=== PATIENT | female | born 1995 ===

== ENCOUNTER 2019-12-29 07:17 | Day surgery (SDC) | payer BC ==
[~2019-12-29 07:17] MED LIST: Lactated Ringers 1,000 ML IV SCH
--- NOTE | 2019-12-29 07:53 | PCM.PREANE ---
Preanesthetic Assessment - Anesthesia/Transfusion/Family Hx Anesthesia History: Prior Anesthesia Without Reaction Family History of Anesthesia Reaction: No Transfusion History: Prior Transfusion Without Reaction Intubation History: Unknown - Review of Systems General: No Symptoms Pulmonary: No Symptoms Cardiovascular: No Symptoms Gastrointestinal: Abdominal Pain (epigastric pain) Neurological: No Symptoms Other: Reports: None - Physical Assessment Vital Signs: Last Vital Signs Temp 36.4 C 12/29/19 07:29 Pulse 64 12/29/19 07:29 Resp 16 12/29/19 07:29 BP 118/72 12/29/19 07:29 Pulse Ox 100 12/29/19 07:29 Height: 5 ft Weight: 48.988 kg ASA Class: 1 Mental Status: Alert & Oriented x3 Airway Class: Mallampati = 2 Dentition: Reports: Partial (upper) Thyro-Mental Finger Breadths: 3 Mouth Opening Finger Breadths: 3 ROM/Head Extension: Full Lungs: Clear to Auscultation, Normal Respiratory Effort Cardiovascular: Regular Rate, Regular Rhythm - Lab Values: Laboratory Last Values Urine HCG, Qual NEGATIVE (NEGATIVE) 12/29/19 07:30 - Allergies Allergies/Adverse Reactions: Allergies Allergy/AdvReac Type Severity Reaction Status Date / Time No Known Allergies Allergy Verified 12/23/19 13:50 - Blood Blood Available: No - Anesthesia Plan Pre-Op Medication Ordered: None - Acknowledgements Anesthesia Type Planned: MAC Pt an Appropriate Candidate for the Planned Anesthesia: Yes Alternatives and Risks of Anesthesia Discussed w Pt/Guardian: Yes Pt/Guardian Understands and Agrees with Anesthesia Plan: Yes PreAnesthesia Questionnaire HEENT History: Reports: Other (See Below) Other HEENT History: top denture Cardiovascular History: Reports: None Respiratory History: Reports: None Gastrointestinal History: Reports: Other (See Below) Other Gastrointestinal History: intermittent abd pain Genitourinary History: Reports: None Musculoskeletal History: Reports: None Neurological History: Reports: None Psychiatric History: Reports: None Endocrine/Metabolic History: Reports: None Hematologic History: Reports: Anemia, Blood Transfusion(s) Immunologic History: Reports: None Oncologic (Cancer) History: Reports: None Dermatologic History: Reports: Eczema Other Dermatologic History: eczema in the past - Infectious Disease History Infectious Disease History: Reports: None - Past Surgical History Head Surgeries/Procedures: Reports: None HEENT Surgical History: Reports: None Cardiovascular Surgical History: Reports: None Respiratory Surgical History: Reports: None GI Surgical History: Reports: None Female Surgical History: Reports: Other (See Below) Other Female Surgeries/Procedures: hx of exploratory laparoscopy Endocrine Surgical History: Reports: None Neurological Surgical History: Reports: None Musculoskeletal Surgical History: Reports: None Oncologic Surgical History: Reports: None Dermatological Surgical History: Reports: None - SUBSTANCE USE Tobacco Use Status *Q: Never Tobacco User - HOME MEDS Home Medications: Home Meds Ibuprofen 400 mg PO ASDIRECTED PRN 12/23/19 [History] - CURRENT (IN HOUSE) MEDS Current Meds: Current Medications Lactated Ringer's (Ringers, Lactated) 1,000 mls @ 125 mls/hr IV ASDIRECTED [facility] Last Admin: 12/29/19 07:40 Dose: 125 mls/hr Documented by:
[2019-12-29] MEDS ORDERED: fentaNYL 100 MCG/2 ML SDV ONE (07:58)
[2019-12-29] MEDS ORDERED: Midazolam 1 MG/ML 2 ML SDV ONE (07:58)
[2019-12-29] MEDS ORDERED: Propofol 200 MG/20 ML SDV ONE (07:58)
--- NOTE | 2019-12-29 08:53 | PCM.OPNOTE ---
- General Post-Op/Procedure Note Date of Surgery/Procedure: 12/29/19 Operative Procedure(s): EGD with biopsies Findings: mild gastritis, Dictation #[id number] Pre Op Diagnosis: LUQ abdominal pain Post-Op Diagnosis: mild gastritis Anesthesia Technique: Moderate Sedation Primary Surgeon: Alpesh Gonzalez Pathology: EGD biopsies Complications: None Condition: Good
--- NOTE | 2019-12-29 09:36 | PCM48HPAN ---
Post Anesthesia Note - EVALUATION WITHIN 48HRS OF ANESTHETIC Vital Signs in Normal Range: Yes Patient Participated in Evaluation: Yes Respiratory Function Stable: Yes Airway Patent: Yes Cardiovascular Function Stable: Yes Hydration Status Stable: Yes Pain Control Satisfactory: Yes Nausea and Vomiting Control Satisfactory: Yes Mental Status Recovered: Yes Vital Signs: Last Vital Signs Temp 36.2 C 12/29/19 09:08 Pulse 78 12/29/19 09:08 Resp 14 12/29/19 09:08 BP 117/81 12/29/19 09:08 Pulse Ox 100 12/29/19 09:08 - COMMENTS/OBSERVATIONS Free Text/Narrative:: No anesthesia problems
--- NOTE | 2019-12-29 09:36 | PCM.POSTAN ---
POST ANESTHESIA ASSESSMENT - MENTAL STATUS Mental Status: Alert, Oriented - VITAL SIGNS Vital Signs: Last Vital Signs Temp 36.2 C 12/29/19 09:08 Pulse 78 12/29/19 09:08 Resp 14 12/29/19 09:08 BP 117/81 12/29/19 09:08 Pulse Ox 100 12/29/19 09:08 - RESPIRATORY Respiratory Status: Respiratory Rate WNL, Airway Patent, O2 Saturation Stable - CARDIOVASCULAR CV Status: Pulse Rate WNL, Blood Pressure Stable - GASTROINTESTINAL GI Status: No Symptoms - PAIN Pain Score: 0 - POST OP HYDRATION Hydration Status: Adequate & Stable - OBSERVATIONS Free Text/Narrative:: No anesthesia problems
--- NOTE | 2019-12-30 10:22 | OR ---
SURGEON: ANSHUL KING MD DATE OF PROCEDURE: 12/29/2019 PREOPERATIVE DIAGNOSIS: Left upper gastric pain. POSTOPERATIVE DIAGNOSIS: Mild gastritis. PROCEDURE PERFORMED: Esophagogastroduodenoscopy with biopsy. PRIMARY SURGEON: Anshul King MD ANESTHESIA: General anesthesia. PATHOLOGY: Biopsy of the pylorus. REASON FOR PROCEDURE: The patient is a pleasant 24-year-old female who says for the last couple of weeks, she has had left abdominal pain that radiates sometimes to the epigastric area. Sometimes this happens when eating. She denies early heartburn issues though. She denies any history of swallowing. She did have ultrasound that showed no gallstones. I did go over this with the patient. PROCEDURE IN DETAIL: Physical examination was performed. The major risks, benefits associated with the procedure were explained to the patient in detail. The patient verbalized understanding of the same. The patient was then connected to appropriate monitoring devices and IV started. EKG, pulse, pulse oximetry, blood pressure, and capnography were monitored throughout the procedure. Continuous oxygen and sedation were provided by the anesthesiologist. The patient was placed, the patient's bite block was placed. Insufflation was begun. After adequate sedation was achieved, the upper endoscope was advanced under direct visualization without difficulty in the upper GI tract. The anatomy and mucosa of the esophagus, GE junction, pylorus, and 1st part of duodenum were all inspected. Duodenum appeared normal. Stomach was examined in both retrograde and antegrade views. The patient had very minimal to mild gastritis. No ulcerations. I did do biopsy of the pylorus to check for H pylori. Scope was brought to the GE junction. GE junction was approximately 35 cm from the incisor. The squamocolumnar junction appeared intact. Scope was brought back into the stomach. Stomach was desufflated. Scope was brought up through the esophagus. Esophagus appeared normal. Scope was completely removed. Procedure was terminated. ENDOSCOPIC DIAGNOSIS: Mild gastritis. RECOMMENDATION: I did go over with the patient again, I do not have a real reason for left upper abdominal pain. She could do a trial of omeprazole over the counter as recommended before at 20 mg daily. Otherwise, she will be followed up with me in the clinic to go over the pathology. BOY / PENELOPE /[id number]
== END 2019-12-29 09:30 | disposition home or self-care (01) ==
LOC: MW.SDS 07:17
PROVIDERS: ATTEND Surgery
DX: K31.89 Other diseases of stomach and duodenum (principal); K29.70 Gastritis, unspecified, without bleeding
CPT/HCPCS: 43239; 81025; J2001; J2250; J2704; J3010; J7120; 00731; 88305; 88312